=== PATIENT | male | born 2000 | race Caucasian/White ===

== ENCOUNTER 2020-01-15 16:25 | Emergency (ER) | payer BC ==
[2020-01-15 16:50] VITALS: BP 133/91
--- NOTE | 2020-01-15 17:22 | UC ---
Ear Complaint HPI - HPI Summary HPI Summary: patient started feeling sick 3 [address] s[address] with mild ST, today ST is worse and R ear hurts. denies fever/chills, coughs only to clear throat tool OTC cold medicine which helped symps a bit - History of Current Complaint Chief Complaint: UCRespiratory Stated Complaint: COUGH, EARACHE Time Seen by Provider: 01/15/20 16:49 Hx Obtained From: Patient Onset/Duration: Gradual Onset Severity Initially: Mild Severity Currently: Mild Pain Intensity: 3 Aggravating Factors: Nothing Alleviating Factors: Nothing - Allergies/Home Medications Allergies/Adverse Reactions: Allergies Allergy/AdvReac Type Severity Reaction Status Date / Time amoxicillin [From Augmentin] Allergy Unknown Verified 01/15/20 16:51 Reaction Details cefuroxime [From Ceftin] Allergy Unknown Verified 01/15/20 16:51 Reaction Details clavulanic acid Allergy Unknown Verified 01/15/20 16:51 [From Augmentin] Reaction Details Home Medications: Home Medications Azithromycin TAB* [Zithromax TAB (Z-YASMANY) 250 mg #6 tabs] 2 tab PO .TODAY, THEN 1 DAILY #1 yasmany 01/15/20 [Rx] Insulin LISPRO* [HumaLOG 100 units/ml 3 ml VIAL *] 01/15/20 [History] PMH/Surg Hx/FS Hx/Imm Hx Previously Healthy: Yes Endocrine History: Diabetes - Surgical History Surgical History: None - Family History Known Family History: Positive: None - Social History Occupation: Student Lives: Dormitory/Roommates Alcohol Use: None Substance Use Type: None Smoking Status (MU): Never Smoked Tobacco Review of Systems All Other Systems Reviewed And Are Negative: Yes Constitutional: Positive: Negative. Negative: Fever, Fatigue Skin: Positive: Negative. Negative: Rash ENT: Positive: Sore Throat, Ear Ache. Negative: Sinus Congestion Respiratory: Positive: Negative. Negative: Shortness Of Breath Cardiovascular: Positive: Negative Gastrointestinal: Positive: Negative. Negative: Vomiting, Diarrhea Musculoskeletal: Positive: Negative Psychological: Positive: Negative Physical Exam Triage Information Reviewed: Yes Appearance: No Pain Distress, Obese Vital Signs: Initial Vital Signs Temp 97.3 F 01/15/20 16:42 Pulse 101 01/15/20 16:42 Resp 16 01/15/20 16:42 BP 133/91 01/15/20 16:42 Pulse Ox 97 01/15/20 16:42 Vital Signs Reviewed: Yes Eye Exam: Normal Eyes: Positive: Conjunctiva Clear ENT: Positive: Pharyngeal erythema, TM bulging, TM dull, TM red - R side only Neck exam: Normal Neck: Positive: Supple, Nontender, No Lymphadenopathy Respiratory Exam: Normal Respiratory: Positive: Lungs clear Cardiovascular Exam: Normal Cardiovascular: Positive: RRR Neurological Exam: Normal Neurological: Positive: Alert Psychological Exam: Normal Skin Exam: Normal Skin: Negative: Rashes Ear Complaint Course/Dx - Differential Dx/Diagnosis Differential Diagnosis/HQI/PQRI: Otitis Media, Pharyngitis Provider Diagnosis: Otitis media, Pharyngitis Discharge ED - Sign-Out/Discharge Documenting (check all that apply): Patient Departure All imaging exams completed and their final reports reviewed: No Studies - Discharge Plan Condition: Good Disposition: HOME Prescriptions: Azithromycin TAB* [Zithromax TAB (Z-YASMANY) 250 mg #6 tabs] 2 tab PO .TODAY, THEN 1 DAILY #1 yasmany Patient Education Materials: Ear Infection (ED), Pharyngitis (ED) Referrals: No Primary Care Phys,NOPCP [Primary Care Provider] - Additional Instructions: drink plenty of fluids and rest start zithromax and take as directed use ibuprofen for pain as directed follow-up [address] [facility] Friday if no better - Billing Disposition and Condition Condition: GOOD Disposition: Home
[2020-01-16 12:37] LABS: HIV 4th Generation Nonreactive (Nonreactive)
== END 2020-01-15 17:30 | disposition home or self-care (01) ==
LOC: UCEAST 16:25
DX: H66.91 Otitis media, unspecified, right ear (principal); J02.9 Acute pharyngitis, unspecified; E11.9 Type 2 diabetes mellitus without complications; Z88.0 Allergy status to penicillin; Z88.1 Allergy status to other antibiotic agents; Z79.4 Long term (current) use of insulin
CPT/HCPCS: 36415; 87389; 87651; 99202; G0463